=== PATIENT | male | born 1970 | race African-American/Black ===

== ENCOUNTER 2018-07-24 13:00 | Emergency (ER) | payer MEDICAID ==
[~2018-07-24] VITALS: Ht 177.8 cm; Wt 80.0 kg
[2018-07-24] MEDS ORDERED: IBUPROFEN 600MG TABLET PO ONE (14:45)
[2018-07-24 15:41] VITALS: BP 140/81
== END 2018-07-24 15:41 | disposition home or self-care (01) ==
LOC: ER 13:00
DX: S60.222A Contusion of left hand, initial encounter (principal); V43.52XA Car driver injured in collision with other type car in traffic accident, initial encounter; Y93.89 Activity, other specified; Y92.89 Other specified places as the place of occurrence of the external cause; Y99.8 Other external cause status
CPT/HCPCS: 73130; 99284